=== PATIENT | female | born 1995 | race African-American/Black ===

== ENCOUNTER 2018-12-04 07:52 | Emergency (ER) | payer OTHER ==
--- NOTE | 2018-12-04 10:14 | ER Document Report ---
ED Cardiac - General Chief Complaint: Palpitations Stated Complaint: HEART BEAT IRREGULAR Time Seen by Provider: 12/04/18 09:58 Primary Care Provider: [facility],EMPLOYEE [Primary Care Provider] - Follow up as needed Mode of Arrival: Ambulatory Information source: Patient Notes: 22-year-old female with no past medical history presents emergency department with complaints of anxiousness. Patient states that she just started a new job 5 days ago. She states that when she comes to work she begins having some anxiousness. Feels an exicted/anxious sensation like when on a roller coaster. She denies any chest pressure or pain. She states that it is intermittent in nature. No alleviating factors. She thinks that it is stress-induced. She denies any chest pain, shortness of breath, lightheadedness, nausea, vomiting, diaphoresis, abdominal pain. Patient has not taken any medications. She states that she does drink coffee. Patient denies any diabetes, hypertension, hyperlipidemia, coronary artery disease, history of coronary artery disease, family history of coronary artery disease, smoking. Patient also denies any recent travel, recent surgeries, calf pain, calf swelling, history of malignancy, history of DVT or PE. Patient states that she is on control. She denies any shortness of breath. Patient is currently asymptomatic. - HPI Patient complains to provider of: Palpitations Was the onset of pain: Gradual When did pain begin: 5 days Is the pain a: New problem Quality of pain: Other - palpitation/ anxiousness Severity now: None Severity at worst: Mild Pain level currently: Denies Chest pain precipitating factors: At Rest Cardiac risk factors: None Positive cardiac history: No Associated symptoms: None Exacerbated by: Denies Relieved by: Nothing Similar symptoms previously: No Recently seen / treated by doctor: No - Related Data Allergies/Adverse Reactions: No Known Allergies Allergy (Unverified 12/04/18 07:55) Past Medical History - General Information source: Patient - Social History Smoking Status: Never Smoker Family History: Reviewed & Not Pertinent Review of Systems - Review of Systems Constitutional: No symptoms reported EENT: No symptoms reported Cardiovascular: Palpitations Respiratory: No symptoms reported Gastrointestinal: No symptoms reported Genitourinary: No symptoms reported Female Genitourinary: No symptoms reported Musculoskeletal: No symptoms reported Skin: No symptoms reported Hematologic/Lymphatic: No symptoms reported Neurological/Psychological: No symptoms reported -: Yes All other systems reviewed and negative Physical Exam - Vital signs Vitals: Temp Pulse Resp BP Pulse Ox 98.7 F 93 16 120/59 L 100 12/04/18 07:58 12/04/18 07:58 12/04/18 07:58 12/04/18 07:58 12/04/18 07:58 - Notes Notes: PHYSICAL EXAMINATION: GENERAL: Well-appearing, well-nourished and in no acute distress. HEAD: Atraumatic, normocephalic. EYES: Pupils equal round and reactive to light, extraocular movements intact, conjunctiva are normal. ENT: Nares patent, oropharynx clear without exudates. Moist mucous membranes. NECK: Normal range of motion, supple without lymphadenopathy LUNGS: Breath sounds clear to auscultation bilaterally and equal. No wheezes rales or rhonchi. HEART: Regular rate and rhythm without murmurs ABDOMEN: Soft, nontender, nondistended abdomen. No guarding, no rebound. No masses appreciated. Female : deferred Musculoskeletal: Normal range of motion, no pitting or edema. No cyanosis. NEUROLOGICAL: Cranial nerves grossly intact. Normal speech, normal gait. Normal sensory, motor exams PSYCH: Normal mood, normal affect. SKIN: Warm, Dry, normal turgor, no rashes or lesions noted. Course - Re-evaluation Re-evalutation: 12/04/18 10:13 Patient under a lot of stress and starting a new job 5 days ago. She states that when she gets to work she begins having anxiety. Patient states that this resolves on its own. She has been consuming caffeine. I will obtain an EKG, urine, urine , chest x-ray. Patient is currently asymptomatic and has no complaints. 12/04/18 10:29 EKG: Ventricular rate 90, LA interval 120, QRS duration 66, QTc 411, normal sinus rhythm. No ST segment elevation. 12/04/18 11:22 Chest x-ray does not show an acute process. EKG is within normal limits. Urine is normal. Patient continues to be asymptomatic. I will discharge the patient home. Patient instructed to follow-up with her primary care physician this week, to decrease the caffeine use, and to return for worsening symptoms. - Vital Signs Vital signs: Temp Pulse Resp BP Pulse Ox 98.7 F 93 16 120/59 L 100 12/04/18 07:58 12/04/18 07:58 12/04/18 07:58 12/04/18 07:58 12/04/18 07:58 - Laboratory Laboratory results interpreted by me: 12/04/18 10:13 Urine Ketones 80 H Urine Blood MODERATE H Discharge - Discharge Clinical Impression: Anxiety Condition: Good Disposition: HOME, SELF-CARE Instructions: Anxiety ([facility]) Referrals: HEALTH,EMPLOYEE [Primary Care Provider] - Follow up as needed AMMY CHONG MD [ACTIVE STAFF] - Follow up as needed
[2018-12-04 10:34] LABS: APPEARANCE,URINE CLEAR; BILIRUBIN,URINE NEGATIVE (NEGATIVE); COLOR,URINE YELLOW; GLUCOSE, URINE NEGATIVE (NEGATIVE); KETONES,URINE 80 mg/dL (NEGATIVE); LEUKOCYTE ESTERASE,URINE NEGATIVE (NEGATIVE); NITRITE,URINE NEGATIVE (NEGATIVE); PROTEIN,URINE NEGATIVE (NEGATIVE); UROBILINOGEN,URINE NEGATIVE mg/dL (<2.0)
--- NOTE | 2018-12-04 10:37 | RADIOLOGY REPORT (SQ) ---
EXAM DESCRIPTION: CHEST 2 VIEWS COMPLETED DATE/TIME: 12/04/2018 10:23 am REASON FOR STUDY: palpitations COMPARISON: None. EXAM PARAMETERS: NUMBER OF VIEWS: two views TECHNIQUE: Digital Frontal and Lateral radiographic views of the chest acquired. RADIATION DOSE: NA LIMITATIONS: none FINDINGS: LUNGS AND PLEURA: No opacities, masses or pneumothorax. No pleural effusion. MEDIASTINUM AND HILAR STRUCTURES: No masses or contour abnormalities. HEART AND VASCULAR STRUCTURES: Heart normal size. No evidence for failure. BONES: No acute findings. HARDWARE: None in the chest. OTHER: No other significant finding. IMPRESSION: 1. NO ACUTE RADIOGRAPHIC FINDING IN THE CHEST. TECHNICAL DOCUMENTATION: JOB ID: [id number]- All Rights Reserved Reading location - IP/workstation name: [email or web address]
[2018-12-04 11:35] VITALS: BP 126/76
--- NOTE | 2018-12-04 12:39 | EKG REPORT ---
SEVERITY:- BORDERLINE ECG - SINUS RHYTHM BORDERLINE T ABNORMALITIES, ANTERIOR LEADS LVH : Confirmed by: Chase Redman 04-Dec-2018 12:38:47
== END 2018-12-04 11:37 | disposition home or self-care (01) ==
LOC: ER 07:52
DX: F41.9 Anxiety disorder, unspecified (principal); R00.2 Palpitations
CPT/HCPCS: 71046; 81001; 81025; 93005; 93010; 99285

== ENCOUNTER → 2020-11-16 | Outpatient (CLI) | payer OTHER ==
[~2020-11-16] MED LIST: COVID-19 VACCINE (PFIZER)/PF 30 MCG/0.3 ML VIAL IM ONE; EPINEPHRINE INJ/PF 1 MG/1 ML AMPULE IM PRN
== END ==
LOC: EMPHEALTH 15:36
PROVIDERS: ATTEND Internal Medicine
DX: Z23 Encounter for immunization (principal)
CPT/HCPCS: 91300